=== PATIENT | female | born 1960 | race Caucasian/White ===

== ENCOUNTER 2021-07-14 08:33 | Emergency (ER) | payer MEDICARE, OTHER ==
[~2021-07-14] VITALS: Ht 167.6 cm; Wt 100.0 kg
--- NOTE | 2021-07-14 09:10 | PHYS DOC ---
Past History Additional Past Medical Histor: manic depression, pre diabetes, IBS, neuropathy, back pain, fibromyalgia, Past Surgical History: Hysterectomy Additional Past Surgical Histo: lower back sx, hernia sx General Adult EDM: Chief Complaint: MEDICATION REFILL HPI: HPI: 60-year-old female presents with chills, nausea, shortness of breath. The patricia ent is visiting from out of town and missed her flight earlier this week. She only brought up medication with her through Saturday. She has been out of her medications for 2 days. Her primary complaint today is that she feels like she is having chills and body aches. She is not sure if she has an actual fever. She was vaccinated against COVID-19 with the [employer] vaccine. She tells me she just feels generally ill. She does admit to some shortness of breath with exertion. Review of Systems: Review of Systems: Constitutional: Chills, body aches Eyes: Denies change in visual acuity HENT: Denies nasal congestion or sore throat Respiratory: shortness of breath Cardiovascular: Denies chest pain or edema GI: Denies abdominal pain, nausea, vomiting, bloody stools or diarrhea : Denies dysuria Musculoskeletal: Denies back pain or joint pain Integument: Denies rash Neurologic: Denies headache, focal weakness or sensory changes Endocrine: Denies polyuria or polydipsia Lymphatic: Denies swollen glands Psychiatric: Denies depression or anxiety Current Medications: Current Meds: Current Medications Medications (Trade) Dose Ordered Sig/[facility] Start Time Stop Time Status Last Admin Dose Admin Ondansetron HCl (Zofran) 4 mg 1X ONCE 07/14/21 09:15 07/14/21 09:16 UNV Sodium Chloride 1,000 ml @ 1,000 mls/hr 1X ONCE 07/14/21 09:15 07/14/21 10:14 UNV Physical Exam: PE: Constitutional: Well developed, well nourished, obese, no acute distress, non- toxic appearance. [] HENT: Normocephalic, atraumatic, bilateral external ears normal, oropharynx moist, no oral exudates, nose normal. [] Eyes: PERRLA, EOMI, conjunctiva normal, no discharge. [] Neck: Normal range of motion, no tenderness, supple, no stridor. [] Cardiovascular: Heart rate 84, regular rhythm, no murmur [] Lungs & Thorax: Mild end expiratory wheezing at the right base [] Abdomen: Bowel sounds normal, soft, no tenderness, no masses, no pulsatile masses. [] Skin: Warm, moist, no erythema, no rash. [] Back: No tenderness, no CVA tenderness. [] Extremities: No tenderness, no cyanosis, no clubbing, ROM intact, no edema. [] Neurologic: Alert and oriented X 3, normal motor function, normal sensory function, no focal deficits noted. [] Psychologic: Affect normal, judgement normal, mood anxious. [] Current Patient Data: Vital Signs: Vital Signs Date Time Temp Pulse Resp B/P (MAP) Pulse Ox O2 Delivery O2 Flow Rate FiO2 07/14/21 08:47 98.1 80 24 149/86 (107) 97 Room Air EKG: EKG: Sinus rhythm, rate 74, normal axis, no ST elevation or depression. [] Radiology/Procedures: Radiology/Procedures: [] Impressions: Single AP view of the chest. Comparison: None. Indication: Shortness of breath Findings: The heart is not enlarged. There is no pneumothorax or effusion. No air space or interstitial disease. Impression: 1. No acute cardiopulmonary process. Electronically signed by: Guanakito Escudero MD (07/14/2021 9:41 AM) [id number] DICTATED AND SIGNED BY: GUANAKITO ESCUDERO MD DATE: 07/14/21 0941 CC: LETHA MONROY DO; NON,STAFF ~MTH0 0 Heart Score: C/O Chest Pain: No Risk Factors: Risk Factors: DM, Current or recent (<one month) smoker, HTN, HLP, family history of CAD, obesity. Risk Scores: Score 0 - 3: 2.5% MACE over next 6 weeks - Discharge Home Score 4 - 6: 20.3% MACE over next 6 weeks - Admit for Clinical Observation Score 7 - 10: 72.7% MACE over next 6 weeks - Early Invasive Strategies Course & Med Decision Making: Course & Med Decision Making Pertinent Labs and Imaging studies reviewed. (See chart for details) The patient's rapid Covid is negative. Her labs are unremarkable. Her chest x- ray is negative for acute findings. Her EKG is negative for acute findings. The patient has been out of her medications for 3 days now. She takes high-dose gabapentin, venlafaxine, nortriptyline, among others. Any or all of these could be causing her some withdrawal symptoms. I will give her at least these medications to cover her until she goes home tonight. She [place] of her [place]. She is stable for discharge at this time. [] Dimitri Disclaimer: Dimitri Disclaimer: This electronic medical record was generated, in whole or in part, using a voice recognition dictation system. Departure Departure: Impression: Primary Impression: Medication withdrawal Disposition: HOME / SELF CARE / HOMELESS Condition: STABLE LETHA MONROY DO Jul 14, 2021 09:10
[2021-07-14] MEDS: ONDANSETRON PF 4 MG/2 ML VIAL. IVP ONE (09:39)
[2021-07-14] MEDS: IV NORMAL SALINE 1,000ML 1,000 ML IV ONE (09:39)
--- NOTE | 2021-07-14 09:41 | EKG ---
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
[2021-07-14 09:43] LABS: BASO # 0.1 x10^3/uL (0.0-0.2); BASO % 1 % (0-3); EOS % 1 % (0-3); HEMOGLOBIN 14.9 g/dL (12.0-15.5); LYMPH # 1.9 x10^3/uL (1.0-4.8); LYMPH % 20 % (24-48); MEAN CORPUSCULAR HEMOGLOBIN 32 pg (25-35); MEAN CORPUSCULAR HGB CONC 34 g/dL (31-37); MEAN CORPUSCULAR VOLUME 95 fL (79-100); MONO # 0.7 x10^3/uL (0.0-1.1); MONO % 8 % (0-9); NEUT # 6.9 x10^3uL (1.8-7.7); NEUT % 71 % (31-73); PLATELET COUNT 248 x10^3/uL (140-400); RED BLOOD COUNT 4.65 x10^6/uL (3.50-5.40); RED CELL DISTRIBUTION WIDTH 13.4 % (11.5-14.5); WHITE BLOOD COUNT 9.8 x10^3/uL (4.0-11.0)
--- NOTE | 2021-07-14 09:43 | RAD ---
Single AP view of the chest. Comparison: None. Indication: Shortness of breath Findings: The heart is not enlarged. There is no pneumothorax or effusion. No air space or interstitial diseas e. Impression: 1. No acute cardiopulmonary process. Electronically signed by: Guanakito Hooper MD (07/14/2021 9:41 AM) [id number]
[2021-07-14 09:51] LABS: CALCIUM 9.7 mg/dL (8.5-10.1); CREATININE 0.7 mg/dL (0.6-1.0); GFR 85.4; POTASSIUM 3.9 mmol/L (3.5-5.1)
[2021-07-14 09:57] LABS: ALBUMIN 3.7 g/dL (3.4-5.0); ALBUMIN/GLOBULIN RATIO 1.2 (1.0-1.7); TOTAL BILIRUBIN 0.4 mg/dL (0.2-1.0); TOTAL PROTEIN 6.8 g/dL (6.4-8.2)
[2021-07-14] MEDS: GABAPENTIN 400 MG CAPSULE. PO ONE (11:44)
[2021-07-14] MEDS: NORTRIPTYLINE 25 MG CAPSULE PO STA (11:44)
[2021-07-14] MEDS: VENLAFAXINE XR 37.5 MG CAP.ER.24H. PO STA (11:45)
[2021-07-14 11:47] VITALS: BP 126/84
== END 2021-07-14 11:52 | disposition home or self-care (01) ==
LOC: ER 08:33
DX: F15.23 Other stimulant dependence with withdrawal (principal); R06.02 Shortness of breath; Z90.710 Acquired absence of both cervix and uterus; Z20.822 Contact with and (suspected) exposure to COVID-19
CPT/HCPCS: 71045; 80053; 84484; 85025; 87426; 93005; 96361; 96374; 99285; C9803; J2405; J7030; U0003